=== PATIENT | female | born 1975 | race Caucasian/White ===

== ENCOUNTER → 2016-11-10 | Outpatient (CLI) | payer OTHER ==
--- NOTE | 2016-11-10 15:46 | REP ---
MRI BRAIN WITHOUT CONTRAST: HISTORY: Dizziness. There are no areas of abnormal signal intensity in the brain. There is no intraparenchymal hemorrhage, infarct, mass or midline shift. The sella turcica is partially empty. The ventricular system is normal in appearance. There is no extracerebral collection. Mucosal thickening is present in the sphenoid, right ethmoid and maxillary sinuses. A retention cyst is present in the right maxillary sinus. IMPRESSION: There is no intracranial lesion. Signed by Dale Dill MD 11/10/2016 03:47 P
--- NOTE | 2016-11-10 15:51 | REP ---
MRA CAROTIDS WITHOUT CONTRAST: HISTORY: Dizziness. Unenhanced 2D [id number] MR angiography was performed at the level of the carotid bifurcations. The distal common carotid arteries and origins of the external and internal carotid arteries are normal. There is no carotid atherosclerotic lesion. The vertebral arteries are equal in size and patent. Mild atherosclerotic disease involves the proximal left vertebral artery. IMPRESSION: 1. There is no carotid stenosis. 2. Mild atherosclerotic disease involves the proximal left vertebral artery. Signed by Dale Dill MD 11/10/2016 03:56 P
--- NOTE | 2016-11-10 18:42 | REP ---
MRA BRAIN WITHOUT CONTRAST: HISTORY: Dizziness. 3D TOF MR angiography was performed at the level of the [place] of [place]. There is no aneurysm, arteriovenous malformation or atherosclerotic lesion. Intracranial vessels are patent. The vertebral arteries are equal in size. IMPRESSION: Normal MRA brain. Signed by Dale Dill MD 11/14/2016 08:13 A
== END ==
LOC: M PLARAD 07:33
PROVIDERS: ATTEND Psychiatry & Neurology Neurology
DX: I25.10 Atherosclerotic heart disease of native coronary artery without angina pectoris (principal)